=== PATIENT | male | born 1940 | race Caucasian/White ===

== ENCOUNTER 2017-10-11 14:21 | Inpatient (IN) | payer MEDICARE, BC ==
[~2017-10-11] VITALS: Ht 167.6 cm; Wt 55.9 kg
[2017-10-11 16:49] VITALS: BP 149/81
[2017-10-11] MEDS ORDERED: SERTRALINE HYD100 MG PO (17:50)
[2017-10-11] MEDS ORDERED: SIMVASTATIN40 M1 PO (17:50)
[2017-10-11] MEDS ORDERED: ASPIR LOW81 MG PO (17:51)
[2017-10-11] MEDS ORDERED: D-1000 185 MG-11 TAB PO (17:52)
[2017-10-11] MEDS ORDERED: OMEPRAZOLE40 MG PO (17:52)
[2017-10-11] MEDS ORDERED: ARICEPT10 M1 PO (17:52)
[2017-10-11] MEDS ORDERED: VITAMIN B122500 MC2 PO (17:53)
[2017-10-11 18:00] VITALS: BP 149/81
[2017-10-12 06:37] VITALS: BP 120/79
[2017-10-12 18:26] VITALS: BP 120/87
[2017-10-13 06:34] VITALS: BP 114/81
[2017-10-13 18:32] VITALS: BP 147/70
[2017-10-14 06:20] VITALS: BP 122/72
[2017-10-14 18:23] VITALS: BP 115/73; BP 157/71
[2017-10-15 06:21] VITALS: BP 120/76
[2017-10-15 07:27] LABS: EOS # 0.3 (0.04-0.40); EOS % 3.9 % (0.0-4.0); HEMATOCRIT 37.8 % (42.0-52.0); HEMOGLOBIN 12.3 g/dL (13.5-18.0); LYMPH# 1.2 (1.50-4.00); MEAN CELL VOLUME 97 fl (78-100); MEAN CORPUSCULAR HEMOGLOBIN 32 pg (27-31); MEAN CORPUSCULAR HGB CONC 33 g/dL (33-37); MEAN PLATELET VOLUME 9.5 fl (7.4-10.4); MONO # 0.7 (0.20-0.80); NEU # 4.4 (1.40-6.50); PLATELET COUNT 351 K/mm3 (130-400); RED BLOOD COUNT 3.88 M/mm3 (4.20-5.60); RED CELL DISTRIBUTION WIDTH 12.8 % (11.5-14.5); WHITE BLOOD COUNT 6.6 K/mm3 (4.8-10.8)
[2017-10-15 07:36] LABS: ALBUMIN 2.7 g/dL (3.5-5.0); BUN/CREATININE RATIO 22.6 (6.0-26.0); POTASSIUM 3.9 mmol/L (3.6-5.0); TOTAL BILIRUBIN 0.2 mg/dL (0.2-1.3); TOTAL PROTEIN 5.2 g/dL (6.3-8.2)
[2017-10-15 18:58] VITALS: BP 105/73
[2017-10-16 06:34] VITALS: BP 122/94
[2017-10-16 19:00] VITALS: BP 105/79
[2017-10-17 06:37] VITALS: BP 125/88
[2017-10-17 19:02] VITALS: BP 109/54
[2017-10-18 07:13] VITALS: BP 129/85
[2017-10-18 18:26] VITALS: BP 108/63
[2017-10-18 21:35] LABS: PH-URINE 6.5 (5.0 - 8.0); URINE APPEARANCE CLEAR; URINE BILIRUBIN NEGATIVE (NEGATIVE); URINE BLOOD NEGATIVE (NEGATIVE); URINE COLOR YELLOW; URINE GLUCOSE NEGATIVE (NEGATIVE); URINE KETONE NEGATIVE (NEGATIVE); URINE LEUKOCYTE ESTERASE NEGATIVE (NEGATIVE); URINE NITRATE NEGATIVE (NEGATIVE); URINE PROTEIN(semi-quant) NEGATIVE (NEGATIVE); URINE UROBILINOGEN NORMAL (NORMAL); URINE WBC 0-1 /hpf (0-3)
[2017-10-18 21:36] LABS: URINE MUCUS PRESENT (NOT PRESENT)
[2017-10-19 06:19] VITALS: BP 110/70
[2017-10-19 18:15] VITALS: BP 103/73
[2017-10-20 06:13] VITALS: BP 101/67
== END 2017-10-20 10:30 | disposition home health service (06) | DRG 947 ==
LOC: MED/SURG 14:21
PROVIDERS: Internal Medicine; ADMIT Nurse Practitioner Primary Care
DX: R53.81 Other malaise (principal); E43 Unspecified severe protein-calorie malnutrition; Z93.2 Ileostomy status; F03.90 Unspecified dementia, unspecified severity, without behavioral disturbance, psychotic disturbance, mood disturbance, and anxiety
CPT/HCPCS: A4322; A4409; A4425; J1644; J1650

== ENCOUNTER → 2021-01-30 | Outpatient (CLI) | payer BC ==
[~2021-01-30] MED LIST: ARICEPT10 M1 PO; ASPIR LOW81 MG PO; D-1000 185 MG-11 TAB PO; OMEPRAZOLE40 MG PO; SERTRALINE HYD100 MG PO; SIMVASTATIN40 M1 PO; VITAMIN B122500 MC2 PO
[2021-01-30 09:02] LABS: BASO # 0.03 (0.02-0.10); EOS # 0.14 (0.04-0.40); EOS % 3.3 % (0.0-4.0); HEMATOCRIT 47.6 % (42.0-52.0); HEMOGLOBIN 15.3 g/dL (13.5-18.0); LYMPH# 1.35 (1.50-4.00); MEAN CELL VOLUME 99 fl (78-100); MEAN CORPUSCULAR HEMOGLOBIN 32 pg (27-31); MEAN CORPUSCULAR HGB CONC 32 g/dL (33-37); MEAN PLATELET VOLUME 9.3 fl (7.4-10.4); MONO # 0.45 (0.20-0.80); NEU # 2.26 (1.40-6.50); PLATELET COUNT 190 K/mm3 (130-400); RED CELL DISTRIBUTION WIDTH 12.6 % (11.5-14.5); WHITE BLOOD COUNT 4.2 K/mm3 (4.8-10.8)
[2021-01-30 09:16] LABS: ALBUMIN 3.9 g/dL (3.4-4.8); POTASSIUM 4.4 mmol/L (3.5-5.1)
[2021-01-30 09:17] LABS: CALCIUM 9.4 mg/dL (8.3-10.5)
[2021-01-30 09:18] LABS: TOTAL PROTEIN 6.6 g/dL (6.2-8.1)
[2021-01-30 09:20] LABS: TOTAL BILIRUBIN 1.1 mg/dL (0.2-1.2)
[2021-01-30 14:52] LABS: URINE APPEARANCE HAZY; URINE COLOR YELLOW; URINE PROTEIN(semi-quant) TRACE mg/dL (NEGATIVE)
[2021-01-30 14:53] LABS: URINE BILIRUBIN NEGATIVE (NEGATIVE); URINE BLOOD NEGATIVE (NEGATIVE); URINE GLUCOSE NEGATIVE (NEGATIVE); URINE KETONE NEGATIVE (NEGATIVE); URINE LEUKOCYTE ESTERASE NEGATIVE (NEGATIVE); URINE MUCUS PRESENT (NOT PRESENT); URINE NITRATE NEGATIVE (NEGATIVE); URINE UROBILINOGEN NORMAL (NORMAL); URINE WBC 0-1 /hpf (0-3)
== END ==
LOC: LAB 08:41
PROVIDERS: Family Medicine
DX: Z00.00 Encounter for general adult medical examination without abnormal findings (principal); E78.5 Hyperlipidemia, unspecified; E53.8 Deficiency of other specified B group vitamins

== ENCOUNTER → 2022-01-19 | Outpatient (CLI) | payer BC ==
[2022-01-19 11:08] LABS: BASO # 0.03 K/mm3 (0.02-0.10); EOS # 0.11 K/mm3 (0.04-0.40); EOS % 2.2 % (0.0-4.0); HEMATOCRIT 45.9 % (42.0-52.0); HEMOGLOBIN 15.1 g/dL (13.5-18.0); LYMPH# 1.23 K/mm3 (1.50-4.00); MEAN CELL VOLUME 99 fl (78-100); MEAN CORPUSCULAR HEMOGLOBIN 33 pg (27-31); MEAN CORPUSCULAR HGB CONC 33 g/dL (33-37); MEAN PLATELET VOLUME 9.7 fl (7.4-10.4); MONO # 0.54 K/mm3 (0.20-0.80); NEU # 3.16 K/mm3 (1.40-6.50); PLATELET COUNT 195 K/mm3 (130-400); RED BLOOD COUNT 4.64 M/mm3 (4.20-5.60); RED CELL DISTRIBUTION WIDTH 12.6 % (11.5-14.5); WHITE BLOOD COUNT 5.1 K/mm3 (4.8-10.8)
[2022-01-19 11:49] LABS: URINE WBC 0 /hpf (0-3)
[2022-01-19 11:50] LABS: ALBUMIN 3.9 g/dL (3.4-4.8); POTASSIUM 3.9 mmol/L (3.5-5.1)
[2022-01-19 11:52] LABS: TOTAL PROTEIN 6.7 g/dL (6.2-8.1)
[2022-01-19 13:54] LABS: URINE APPEARANCE CLEAR; URINE BILIRUBIN NEGATIVE (NEGATIVE); URINE BLOOD NEGATIVE (NEGATIVE); URINE COLOR YELLOW; URINE GLUCOSE NEGATIVE (NEGATIVE); URINE KETONE NEGATIVE (NEGATIVE); URINE LEUKOCYTE ESTERASE NEGATIVE (NEGATIVE); URINE MUCUS PRESENT (NOT PRESENT); URINE NITRATE NEGATIVE (NEGATIVE); URINE PROTEIN(semi-quant) TRACE (NEGATIVE); URINE UROBILINOGEN NORMAL (NORMAL)
[2022-01-19 14:24] LABS: TOTAL BILIRUBIN 0.8 mg/dL (0.2-1.2)
== END ==
LOC: LAB 10:14
PROVIDERS: Family Medicine
DX: Z00.00 Encounter for general adult medical examination without abnormal findings (principal); G30.9 Alzheimer's disease, unspecified; E78.5 Hyperlipidemia, unspecified; Z93.2 Ileostomy status; M48.00 Spinal stenosis, site unspecified

== ENCOUNTER → 2022-05-14 | Outpatient (CLI) | payer BC ==
[~2022-05-14] MED LIST changes: +DONEPEZIL HCL10 MG PO; +KETOROLAC10 MG PO; +MIRTAZAPINE30 M1 PO
== END ==
LOC: RAD 11:21 → MAMMO 11:30 → RAD 11:30
DX: Z13.820 Encounter for screening for osteoporosis (principal); M81.0 Age-related osteoporosis without current pathological fracture

== ENCOUNTER → 2022-07-22 | Outpatient (CLI) | payer BC | LOC: LAB 10:34 | DX: E55.9 Vitamin D deficiency, unspecified (principal) ==

== ENCOUNTER → 2024-05-15 | Outpatient (CLI) | payer BC | LOC: AMSURD 09:53 | DX: I48.0 Paroxysmal atrial fibrillation (principal) ==